=== PATIENT | male | born 1990 | race Caucasian/White ===

== ENCOUNTER 2024-03-23 13:46 | Emergency (ER) | payer SELFPAY ==
[~2024-03-23] VITALS: Ht 175.3 cm; Wt 77.0 kg
[2024-03-23 13:56] VITALS: O2SAT 99
[2024-03-23] MEDS: TETANUS, DIPHTHERIA, PERTUSSIS VAC/PF 0.5ML (>10YR OLD) IM ONE (15:15)
[2024-03-23] MEDS: BACITRACIN ZINC OINT UDPKT TOP ONE (15:15)
[2024-03-23] MEDS: HYDROCODONE/ACETAMINOPHEN 5/325MG TABLET PO ONE (15:15)
[2024-03-23] MEDS ORDERED: AMOX1TAB16 MT (15:36)
[2024-03-23] MEDS ORDERED: NAPR-681 PO (15:36)
[2024-03-23 15:54] VITALS: BP 124/68; PULSE 81; RESP 16; TEMP 37.05852; O2SAT 99
== END 2024-03-23 15:55 | disposition home or self-care (01) ==
LOC: ER 14:19
DX: S51.851A Open bite of right forearm, initial encounter (principal); I10 Essential (primary) hypertension; Z23 Encounter for immunization; W54.0XXA Bitten by dog, initial encounter; Y93.89 Activity, other specified; Y92.89 Other specified places as the place of occurrence of the external cause; Y99.8 Other external cause status
CPT/HCPCS: 73090; 90715; 90471; 99283; Z7610 ×2